=== PATIENT | female | born 1980 | race Caucasian/White ===

== ENCOUNTER 2018-11-18 13:28 | Day surgery (SDC) | payer OTHER ==
[2018-11-18] MEDS ORDERED: PROPOFOL 20 ML (17:01)
[2018-11-18] MEDS ORDERED: LIDOCAINE 2% (SDV) 5 ML INJ (17:01)
[2018-11-18] MEDS ORDERED: ONDANSETRON 4 MG INJ IV (17:30)
[2018-11-18] MEDS ORDERED: EPHEDrine 25 MG/5 ML SYG IV (17:30)
[2018-11-18] MEDS ORDERED: FENTAnyl 50 MCG/ML VIAL IV (17:30)
== END 2018-11-18 18:40 | disposition home or self-care (01) ==
LOC: GIL 13:28
DX: K29.30 Chronic superficial gastritis without bleeding (principal); K20.9 Esophagitis, unspecified
CPT/HCPCS: 43239; 84703; 88305; 88312